=== PATIENT | male | born 1990 | race African-American/Black ===

== ENCOUNTER 2018-05-13 12:33 | Emergency (ER) | payer MEDICAID ==
[~2018-05-13] VITALS: Ht 190.5 cm; Wt 74.8 kg
[2018-05-13 12:33] VITALS: BP_SYST 132
[2018-05-13 12:52] VITALS: BP_SYST 114
== END 2018-05-13 12:52 | disposition home or self-care (01) ==
LOC: SED 12:33
DX: K08.89 Other specified disorders of teeth and supporting structures (principal); R68.84 Jaw pain
CPT/HCPCS: 99283